=== PATIENT | female | born 1995 | race African-American/Black ===

== ENCOUNTER 2018-04-01 11:21 | Emergency (ER) | payer BC ==
[2018-04-01 11:28] VITALS: TEMP 99.4; BMI 30.2
[2018-04-01] MEDS ORDERED: diphenhydrAMINE HCL 25 MG CAPSULE (FP) PO ONE ×2 (12:48→12:53)
--- NOTE | 2018-04-01 12:54 | PDOC ---
History of Present Illness - General History Source: Patient Exam Limitations: No Limitations <Orville Whitten - Last Filed: 04/01/18 12:48> - History of Present Illness Initial Comments: 04/01/18 14:02 Patient is a 22 year old female with a significant past medical history of who presents to the ED with complaints of allergic reaction that began 2 weeks ago. Patient reports experiencing gradual hives that began 2 weeks ago that she states has been intermittent. She reports being unsure as to what initiate the allergic reaction, stating she did not begin using any new shampoo, soap or lotions. Denies chest pain, Sob. Denies nausea, vomiting. Denies fevers, chills. Denies contact with sick individuals, out of state travelling. Denies any other symptoms. Allergies: None Social history: No smoking. No alcohol. No illicit drugs. Surgical history: None PMD: Dr. Sidney Reyna <Awais Ann - Last Filed: 04/01/18 14:02> - General Chief Complaint: Rash Stated Complaint: RASH, FEVER Time Seen by Provider: 04/01/18 11:53 Past History - Past Medical History COPD: No - Suicide/Smoking/Psychosocial Hx Smoking History: Never smoked Have you smoked in the past 12 months: No Information on smoking cessation initiated: No Hx Alcohol Use: No Drug/Substance Use Hx: No Substance Use Type: None <Orville Whitten - Last Filed: 04/01/18 12:48> <Awais Ann - Last Filed: 04/01/18 14:02> - Past Medical History Allergies/Adverse Reactions: Allergies Allergy/AdvReac Type Severity Reaction Status Date / Time No Known Allergies Allergy Verified 04/01/18 11:24 Home Medications: Ambulatory Orders Diphenhydramine HCl [Benadryl -] 25 mg PO Q6H PRN #28 capsule 04/01/18 Epinephrine [Epipen 2-Cachorro] 0.3 mg IJ ASDIR PRN #1 kit 04/01/18 Review of Systems - Review of Systems Able to Perform ROS?: Yes Comments:: 04/01/18 14:02 GENERAL/CONSTITUTIONAL: No fever or chills. No weakness. HEAD, EYES, EARS, NOSE AND THROAT: No change in vision. No ear pain or discharge. No sore throat. CARDIOVASCULAR: No chest pain or shortness of breath. RESPIRATORY: No cough, wheezing, or hemoptysis. GASTROINTESTINAL: No nausea, vomiting, diarrhea or constipation. GENITOURINARY: No dysuria, frequency, or change in urination. MUSCULOSKELETAL: No joint or muscle swelling or pain. No neck or back pain. SKIN: +Hives. NEUROLOGIC: No headache, vertigo, loss of consciousness, or change in strength/ sensation. ENDOCRINE: No increased thirst. No abnormal weight change. HEMATOLOGIC/LYMPHATIC: No anemia, easy bleeding, or history of blood clots. ALLERGIC/IMMUNOLOGIC: No hives or skin allergy. <Awais Ann - Last Filed: 04/01/18 14:02> *Physical Exam - Vital Signs Last Vital Signs Temp Pulse Resp BP Pulse Ox 99.4 F 125 H 16 119/72 100 04/01/18 11:24 04/01/18 11:24 04/01/18 11:24 04/01/18 11:24 04/01/18 11:24 <Orville Whitten - Last Filed: 04/01/18 12:48> - Vital Signs Last Vital Signs Temp Pulse Resp BP Pulse Ox 99.4 F 75 18 116/75 100 04/01/18 11:24 04/01/18 13:18 04/01/18 13:18 04/01/18 13:18 04/01/18 13:18 - Physical Exam Comments: 04/01/18 14:02 GENERAL: Awake, alert, and fully oriented, in no acute distress HEAD: No signs of trauma EYES: PERRLA, EOMI, sclera anicteric, conjunctiva clear ENT: Auricles normal inspection, hearing grossly normal, nares patent, oropharynx clear without exudates. Moist mucosa NECK: Normal ROM, supple, no lymphadenopathy, JVD, or masses LUNGS: Breath sounds equal, clear to auscultation bilaterally. No wheezes, and no crackles HEART: Regular rate and rhythm, normal S1 and S2, no murmurs, rubs or gallops ABDOMEN: Soft, nontender, normoactive bowel sounds. No guarding, no rebound. No masses EXTREMITIES: Normal range of motion, no edema. No clubbing or cyanosis. No cords, erythema, or tenderness NEUROLOGICAL: Cranial nerves II through XII grossly intact. Normal speech, normal gait SKIN: +Mild hives on right upper extremity. Warm, Dry, normal turgor, no rashes or lesions noted <Awais Ann - Last Filed: 04/01/18 14:02> ED Treatment Course - Medications Given in the ED: ED Medications Discontinued Medications Generic Name Dose Route Start Last Admin Trade Name Arash PRN Reason Stop Dose Admin Diphenhydramine HCl 25 mg 04/01/18 12:48 04/01/18 12:58 Benadryl - PO 04/01/18 12:49 25 mg ONCE ONE Administration <Awais Ann - Last Filed: 04/01/18 14:02> Medical Decision Making - Medical Decision Making 04/01/18 12:48 A portion of this note was documented by scribe services under my direction. I have reviewed the details of the note, within reason, and agree with the documentation with the following case summary and management plan written by me. Patient treated in the ED. Nursing notes are reviewed and incorporated into the medical decision-making. Vital signs reviewed. Vital Signs Temp Pulse Resp BP Pulse Ox 99.4 F 125 H 16 119/72 100 04/01/18 11:24 04/01/18 11:24 04/01/18 11:24 04/01/18 11:24 04/01/18 11:24 22-year-old female with no past medical history presents with ALLERGIC reaction. The patient reports that 2 weeks ago, started developing intermittent hives but no airway symptoms. No chest pain or short of breath or nausea or vomiting. Started have some itching. Patient is unsure of the exposure. She is not sure if she has any new shampoos or soaps or detergent, lotions. Patient denies any difficulty breathing or chest pain or shortness of breath. It is unclear what the exposure is for the patient. However, the patient is not in anaphylaxis. We'll give a prescription of Benadryl and a prescription of an EpiPen. We'll refer to the special population paraprofessional. We'll not give prednisone given that she will request an outpatient special population paraprofessional. Patient is safe for discharge. I discussed the physical exam findings, ancillary test results and final diagnoses with the patient. I answered all of the patient's questions. The patient was satisfied with the care received and felt comfortable with the discharge plan and treatment plan. The patient will call their primary care physician within 24 hours to arrange follow-up and will return to the Emergency Department with any new, persistant or worsening symptoms. <Orville Whitten - Last Filed: 04/01/18 12:48> *DC/Admit/Observation/Transfer - Discharge Dispostion Decision to Admit order: No <Orville Whitten - Last Filed: 04/01/18 12:48> - Attestations Scribe Attestion: 04/01/18 14:02 Documentation prepared by Awais Ann, acting as medical practitioners for Orville Whitten MD, /DO. <Awais Ann - Last Filed: 04/01/18 14:02> Diagnosis at time of Disposition: Allergic reaction Qualifiers: Encounter type: initial encounter Qualified Code(s): T78.40XA - Allergy, unspecified, initial encounter - Discharge Dispostion Disposition: HOME Condition at time of disposition: Stable - Prescriptions Prescriptions: Diphenhydramine HCl [Benadryl -] 25 mg PO Q6H PRN #28 capsule PRN Reason: Itching Epinephrine [Epipen 2-Cachorro] 0.3 mg IJ ASDIR PRN #1 kit PRN Reason: Anaphylaxis - Referrals Referrals: Sam Sneed MD [Staff Physician] - - Patient Instructions Printed Discharge Instructions: DI for General Allergic Reactions Additional Instructions: Please follow up with an special population paraprofessional. Take 25 mg benadryl every 6 hours as needed for itching/rash. If you have difficulty breathing from an allergic reaction, use the epi-pen as prescribed. Follow up with an special population paraprofessional. You will likely need an allergy testing.
[2018-04-01 13:19] VITALS: BP 116/75; PULSE 75
== END 2018-04-01 13:19 | disposition home or self-care (01) ==
LOC: JER 11:21
DX: T78.40XA Allergy, unspecified, initial encounter (principal); L50.0 Allergic urticaria
CPT/HCPCS: 99281-25

== ENCOUNTER 2019-03-16 09:04 | Emergency (ER) | payer BC ==
[2019-03-16 09:11] VITALS: BP 101/66; PULSE 98; TEMP 98.1; BMI 34.2
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
== END 2019-03-16 09:47 | disposition home or self-care (01) ==
LOC: JERFT 09:04
DX: S09.8XXA Other specified injuries of head, initial encounter (principal); W20.8XXA Other cause of strike by thrown, projected or falling object, initial encounter; Y93.89 Activity, other specified; Y92.488 Other paved roadways as the place of occurrence of the external cause; Y99.8 Other external cause status
CPT/HCPCS: 99281-25